=== PATIENT | female | born 2000 | race Two or more races ===

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

== ENCOUNTER 2019-01-15 09:00 | Emergency (ER) | payer OTHER ==
--- NOTE | 2019-01-15 09:24 | PDOC ---
History of Present Illness - General Chief Complaint: Pain Stated Complaint: FEVER & BODY ACHES Time Seen by Provider: 01/15/19 09:24 History Source: Patient, Care Provider Exam Limitations: No Limitations - History of Present Illness Initial Comments: 01/15/19 09:41 18 year old female, accompanied by school stud master/mistress from [facility], with a significant past medical history of mood disorder and depression, ovarian cyst , gastritis presenting with generalized body aches since yesterday. Associated with myalgias, headache, lower back pain, upper abdominal pain worse with breathing and movement. Denies trauma or strenuous activity/fall. Denies fever, chills, neck stiffness, chest pain, SOB, congestion, cough, palpitation, dizziness, weakness, N, V, D, bladder and bowel problems, leg swelling, No sick contacts or travel. No new changes in medications. No suspicious food intake 01/15/19 09:42 Past History - Past Medical History Allergies/Adverse Reactions: Allergies Allergy/AdvReac Type Severity Reaction Status Date / Time No Known Allergies Allergy Verified 01/15/19 09:17 Home Medications: Ambulatory Orders Acetaminophen 650 mg PO ONCE 09/18/17 COPD: No DVT: No Psychiatric Problems: Yes (borderline personality, major depressive disorder, conduct disorder,) - Reproductive History (#): 0 Para: 0 Cervical CA: No Dysfunctional Uterine Bleeding: No Ectopic : No Endometrial CA: No Polycystic Ovaries: Yes Therapeutic (s) & number: No Tubal Ligation: No Spontaneous : 0 - Immunization History Immunization Up to Date: Yes - Suicide/Smoking/Psychosocial Hx Smoking History: Never smoked Have you smoked in the past 12 months: No Hx Alcohol Use: No Drug/Substance Use Hx: No Substance Use Type: None Review of Systems - Review of Systems Able to Perform ROS?: Yes Comments:: 01/15/19 09:41 Review of systems Constitutional: no fevers or chills. HEENT: +headache, no hdizziness. No congestion. No visual/hearing disturbances. CVS: no cp or syncope. Resp: no sob. No cough. Gastrointestinal: +abdominal pain, No nausea or vomiting or diarrhea. Genitourinary: no urinary sx, hematuria. no urgency/frequency. MUSCULOSKELETAL: No joint pain and swelling. No neck pain or stiffness. +body aches, lower back pain SKIN: no redness or skin changes, no discharge, no rash. No wounds. Hematologic: no easy bruising/bleeding. NEUROLOGIC: No dizziness, LOC or altered mental status. No weakness, numbness or tingling. Psych: +anxiety depression and mood disturbance. Allergic/Immunologic: no allergies All other systems reviewed and negative, or as documented in HPI. *Physical Exam - Physical Exam Comments: 01/15/19 09:42 Physical exam: General: Well appearing, awake and alert, NAD. mentating. HEENT: NCAT, PERRL, EOMI, clear conjunctiva, anicteric, moist mucus membranes, clear oropharynx, no oral lesions.. Neck: neck supple, FROM Resp: CTAB, normal and even respirations, no respiratory distress CVS: +tachycardic, no murmurs, 2+ peripheral pulses throughout, no peripheral edema Abdomen: soft, nondistended, diffusely/nonfocal tenderness, no rebound or guarding. no CVAT Back: normal inspection and ROM, bilateral paravertebral muscular TTP MSK: no edema, BARRERA x4, ROM intact. No clubbing or cyanosis. normal bulk and tone. Neuro: alert, no focal neuro deficits. gait stable. Extrem: no calf tenderness. Psych: calm and cooperative Skin: warm and well perfused, cap refill <2 sec, normal color, no rash ED Treatment Course - LABORATORY CBC & Chemistry Diagram: 01/15/19 09:50 01/15/19 09:50 Medical Decision Making - Medical Decision Making 01/15/19 09:44 See HPI for details. Prior notes reviewed, including admissions, discharges and consultations. Vital signs reviewed, fever and tachycardia noted. Vital Signs Temp Pulse Resp BP Pulse Ox 100.8 F H 112 H 16 126/72 100 01/15/19 09:11 01/15/19 09:11 01/15/19 09:11 01/15/19 09:11 01/15/19 09:11 DDX. viral syndrome, fever/febrile illness, electrolyte/metabolic derangements, pneumonia, infection, UTI, appendicitis, mesenteric adenitis, diverticulitis, pancreatitis, hepatitis. doubt meningitis/encephalitis, normal mental status, no neuro deficits, no neck stiffness or neuro changes. more likely viral or abdominal infection, laboratory results and imaging reviewed, basic labs and lytes wnl, notable for LFTs/lipase wnl UA_neg for infection CXR_no acute pathology, no pna ED course -interventions: IVF, analgesia, toradol/tylenol, reassess 01/15/19 10:52 - on reeval, feels improved. however on reassessment, RLQ abdominal tenderness noted. will need CT a/p to eval for acute appy. drink contrast, as borderline BMI. 01/15/19 13:53 VS improved, no longer febrile/tachy. CT a.p neg for acute pathology, no appy. collapsed rt ovarian cyst, small pelvic FF, likely physio related to cyst/cycle on reeval, pain controlled, comfortable, no abdominal pain, could be sx ov cyst related to hormonal changes, LMP 3 weeks ago. clinically doubt torsion, defer further imaging at this time. pt does have h/o symptomatic ovarian cyst. size 2 x 0.8cm. has had referrals to obstetrics and gynecology professor previously, but not followed up will provide obstetrics and gynecology professor. Pt to be discharged in stable condition. Patient made aware of clinical impression, treatment recommendations and disposition plan, return precautions discussed (including but not limited to new or persistent/worsening symptoms, pain, fevers, or signs of infection, chest pain, respiratory distress, inability to tolerate oral intake, dehydration, syncope, or neurologic changes) . Follow up with PMD and/or specialist as recommended, follow up information provided, take medications as instructed for duration of time. continue with supportive care, avoid triggers and precipitants. All questions answered to patient's satisfaction and expressed understanding and comfort with this. At the time of discharge, the patient is alert, clinically improved, tolerating po and verbalizes understanding of instructions, satisfied with the care received and felt comfortable with the plan. Patient does not suffer from an acute life- threatening medical condition at this time and is safe for outpatient follow- up. 01/15/19 13:57 01/15/19 13:58 *DC/Admit/Observation/Transfer Diagnosis at time of Disposition: Ovarian cyst Qualifiers: Laterality: unspecified laterality Qualified Code(s): N83.209 - Unspecified ovarian cyst, unspecified side Abdominal pain Qualifiers: Abdominal location: generalized Qualified Code(s): R10.84 - Generalized abdominal pain Fever Qualifiers: Fever type: unspecified Qualified Code(s): R50.9 - Fever, unspecified - Discharge Dispostion Disposition: HOME Condition at time of disposition: Good Decision to Admit order: No - Referrals Referrals: [facility] [Provider Group] [facility] [Provider Group] Clarence Mckeon MD [Staff Physician] - Betty Godfrey MD [Staff Physician] - Brie Hogan MD [Staff Physician] - - Patient Instructions Printed Discharge Instructions: DI for Abdominal Pain-Adult, DI for Fever ( Symptom) -- Adult Additional Instructions: 1) Please follow-up with your primary care doctor in the next 1-2 days. Please call tomorrow for for any urgent issues. you should follow up with gynecologists, referrals given, for your ovarian cyst 2) You were given a copy of the tests performed today. Please bring the results with you and review them with your primary care doctor. Your laboratory / imaging results were normal, including your CT scan - negative for appendicitis , ovarian cyst seen. 3) If you have any worsening of symptoms or any other concerns please return to the ED immediately. Return if worsening symptoms including fevers, headache, vomiting, visual or hearing disturbances, abdominal pain, chest pain, shortness of breath, syncope, dehydration, inability to take things by mouth/vomiting, altered mental status, or worsening concerning symptoms. 4) Please continue taking your home medications as directed. Please take IBUPROFEN (aka MOTRIN, ADVIL, ALEVE) 400 mg and/or ACETAMINOPHEN ( aka Tylenol) 650-975 mg every 6 hours, as needed, for pain. Please do not take these medications if you have a bleeding disorder, stomach or GI ulcer problems or liver disease. Stay well hydrated and rest adequately. Make an appointment. If you cannot follow-up with your primary care doctor please return to the ED - Post Discharge Activity
[2019-01-15] MEDS ORDERED: KETOROLAC TROMETHAMINE 30 MG/1 ML VIAL IVPUSH ONE (09:25)
[2019-01-15] MEDS ORDERED: SODIUM CHLORIDE 1,000 ML IV STA (09:25)
[2019-01-15] MEDS ORDERED: FAMOTIDINE 20 MG/50 ML IVPB 20 MG/50 ML MG IVPB ONE (09:25)
[2019-01-15] MEDS ORDERED: MAG HYDROX/AL HYDROX/SIMETH 30 ML UNIT-DOSE CUP PO ONE (09:26)
[2019-01-15] MEDS ORDERED: ACETAMINOPHEN 325 MG TABLET (FP) PO ONE (09:38)
[2019-01-15] MEDS ORDERED: KETOROLAC TROMETHAMINE 30 MG/1 ML VIAL ONE (09:39)
[2019-01-15] MEDS ORDERED: MAG HYDROX/AL HYDROX/SIMETH 30 ML UNIT-DOSE CUP ONE (09:40)
[2019-01-15] MEDS ORDERED: ACETAMINOPHEN 325 MG TABLET (FP) ONE (10:08)
[2019-01-15 10:17] LABS: BASO % 0.7 % (0-2.0); EOS % 0.1 % (0-4.5); HEMATOCRIT 45.8 % (32.4-45.2); HEMOGLOBIN 14.9 GM/dl (10.7-15.3); MCH 29.5 pg (25.7-33.7); MCHC 32.6 g/dl (32.0-36.0); MEAN CELL VOLUME 90.3 fl (80-96); MEAN PLT VOLUME 8.8 fl (7.5-11.1); MONO % 16.7 % (3.8-10.2); NEUT % 71.5 % (42.8-82.8); PLATELET COUNT 312 K/MM3 (134-434); RBC 5.07 M/mm3 (3.60-5.2); RDW 14.1 % (11.6-15.6); WHITE BLOOD COUNT 6.3 K/mm3 (4.0-10.8)
[2019-01-15 10:25] LABS: ALBUMIN 4.5 g/dl (3.4-5.0); BILIRUBIN,TOTAL 0.8 mg/dl (0.2-1); CALCIUM 9.1 mg/dl (8.5-10); CREATININE 0.8 mg/dl (0.55-1.3); POTASSIUM 3.8 mmol/L (3.5-5.1); TOT PROT 7.9 g/dl (6.4-8.2)
[2019-01-15 10:50] VITALS: BMI 26.3
[2019-01-15 11:08] VITALS: BP 111/73; PULSE 88; TEMP 98.1
== END 2019-01-15 14:01 | disposition home or self-care (01) ==
LOC: FER 09:00
PROC: 3E033GC Introduction of Other Therapeutic Substance into Peripheral Vein, Percutaneous Approach (ICD-10-PCS; principal; 2019-01-15)
PROC: 3E0333Z Introduction of Anti-inflammatory into Peripheral Vein, Percutaneous Approach (ICD-10-PCS; 2019-01-15)
PROC: 3E0337Z Introduction of Electrolytic and Water Balance Substance into Peripheral Vein, Percutaneous Approach (ICD-10-PCS; 2019-01-15)
DX: N83.209 Unspecified ovarian cyst, unspecified side (principal); R10.84 Generalized abdominal pain; R50.9 Fever, unspecified
CPT/HCPCS: 36415; 71046-TC-FY; 74177-TC; 80053; 81003; 82550; 83690; 84703; 85025; 87077; 87086; 99285-25; J7030